=== PATIENT | female | born 1940 | race Caucasian/White ===

== ENCOUNTER 2022-02-23 17:36 | Observation (INO) | payer OTHER ==
[~2022-02-23] VITALS: Ht 154.9 cm; Wt 61.7 kg
[2022-02-23 19:08] LABS: HEMOGLOBIN 13.5 gm/dl (12.3-15.3); RED BLOOD COUNT 4.57 M/UL (4.00-5.10); WHITE BLOOD COUNT 9.9 K/UL (4.5-11.0)
[2022-02-23 19:32] LABS: BUN/CREATININE RATIO 26 (0-10)
[2022-02-24 09:22] LABS: BUN/CREATININE RATIO 24 (0-10)
[2022-02-24] MEDS ORDERED: AMLODIPINE BESYL5 MG PO (11:41)
[2022-02-24] MEDS ORDERED: FOLIC ACID1 MG PO (11:41)
[2022-02-24] MEDS ORDERED: PREDNISONE5 MG PO (11:42)
[2022-02-24] MEDS ORDERED: BUDESONIDE0.5 MG/2 M INH (11:43)
[2022-02-24] MEDS ORDERED: HUMIRA(CF)80 MG/0.8 SQ (11:43)
[2022-02-24] MEDS ORDERED: METHOTREXATE T2.5 MG PO (11:44)
[2022-02-24] MEDS ORDERED: PROVENTIL HFA6.7 GM INH (11:45)
[2022-02-24] MEDS ORDERED: OMEPRAZOLE20 MG PO (11:45)
[2022-02-24] MEDS ORDERED: CELECOXIB200 MG PO (11:46)
[2022-02-24] MEDS ORDERED: LEVOTHYROXINE25 MCG PO (11:46)
[2022-02-24] MEDS ORDERED: PROLIA INJ60 MG/1 ML SC (11:47)
[2022-02-24] MEDS ORDERED: CENTRUM SILVER1 EAC4 PO (11:48)
[2022-02-24] MEDS ORDERED: [UNRECOGNIZED DRUG - OTHER] PO (11:48)
[2022-02-24] MEDS ORDERED: [UNRECOGNIZED DRUG - OTHER] PO (11:49)
[2022-02-24] MEDS ORDERED: COD LIVER OIL1 EACH PO (11:50)
--- NOTE | 2022-02-24 16:43 | NUR ---
PT & FAMILY MEMBER STATED THAT THE PATIENT IS NOT ALLERGIC TO LORATAB OR TYLENOL. PT STATES SHE IS ALLERGIC TO TRAMADOL WITH A SEVERE REACTION OF NAUSEA. NOTIFIED .
[2022-02-25 01:51] LABS: HEMOGLOBIN 12.4 gm/dl (12.3-15.3); RED BLOOD COUNT 4.26 M/UL (4.00-5.10); WHITE BLOOD COUNT 8.7 K/UL (4.5-11.0)
[2022-02-25 02:26] LABS: BUN/CREATININE RATIO 23 (0-10)
[2022-02-25 18:25] LABS: BUN/CREATININE RATIO 20 (0-10)
[2022-02-26] MEDS ORDERED: PROTONIX 40 MG40 M1 PO (10:59)
[2022-02-26] MEDS ORDERED: OMNICEF 300 MG300 MG PO (10:59)
[2022-02-26] MEDS ORDERED: LOPRESSOR 25 MG25 MG PO (11:18)
== END 2022-02-26 12:55 | disposition home health service (06) ==
LOC: ER1 17:36 → MED SURG 4 02-24 02:11 → PROG CARE 02-24 02:11 → CDU 02-24 02:11 → PROG CARE 02-24 06:44 → MED SURG 4 02-24 22:42
PROVIDERS: Internal Medicine Nephrology; Physician Assistant; ADMIT Internal Medicine
DX: E87.1 Hypo-osmolality and hyponatremia (principal); I10 Essential (primary) hypertension; I25.10 Atherosclerotic heart disease of native coronary artery without angina pectoris; M06.9 Rheumatoid arthritis, unspecified; M32.9 Systemic lupus erythematosus, unspecified; J44.9 Chronic obstructive pulmonary disease, unspecified; R01.1 Cardiac murmur, unspecified; M54.30 Sciatica, unspecified side; Z66 Do not resuscitate; Z87.440 Personal history of urinary (tract) infections; Z95.5 Presence of coronary angioplasty implant and graft; Z79.52 Long term (current) use of systemic steroids; Z79.890 Hormone replacement therapy; Z79.899 Other long term (current) drug therapy; Z87.891 Personal history of nicotine dependence; Z88.5 Allergy status to narcotic agent
CPT/HCPCS: 36415; 70450; 71045; 80048; 80053; 81001; 82436; 82533; 83735; 83935; 84133; 84295; 84300; 84443; 85025; 87086; 94640; 94760; 96372; 96374; 96376; 99285; G0378; J0696; J1650